=== PATIENT | female | born 2000 | race Two or more races ===

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

== ENCOUNTER → 2019-02-07 | Outpatient (CLI) | payer OTHER | END | disposition home or self-care (01) | LOC: PRENATAL 14:30 | DX: O35.0XX0 Maternal care for (suspected) central nervous system malformation in fetus, not applicable or unspecified (principal); O28.3 Abnormal ultrasonic finding on antenatal screening of mother; O99.89 Other specified diseases and conditions complicating pregnancy, childbirth and the puerperium ==

== ENCOUNTER 2019-03-14 21:45 | Outpatient (CLI) | payer OTHER ==
[2019-03-14] MEDS ORDERED: PRENATAL TABLE1 EACH PO (22:09)
== END 2019-03-15 10:37 | disposition home or self-care (01) ==
LOC: OBS/DEL 21:45
DX: O98.813 Other maternal infectious and parasitic diseases complicating pregnancy, third trimester (principal); B37.89 Other sites of candidiasis; O76 Abnormality in fetal heart rate and rhythm complicating labor and delivery

== ENCOUNTER 2019-03-16 08:41 | Inpatient (IN) | payer OTHER ==
[~2019-03-16] VITALS: Ht 172.7 cm; Wt 87.8 kg
[~2019-03-16 08:41] MED LIST: PRENATAL TABLE1 EACH PO
== END 2019-03-18 18:08 | disposition home or self-care (01) | DRG 807 ==
LOC: OBS/DEL 08:41 → OB/GYN 13:20 → OBS/DEL 13:20 → LDR 13:20 → OB/GYN 17:50
PROVIDERS: ADMIT Obstetrics & Gynecology
PROC: 10E0XZZ Delivery of Products of Conception, External Approach (ICD-10-PCS; principal; 2019-03-16)
PROC: 0HQ9XZZ Repair Perineum Skin, External Approach (ICD-10-PCS; 2019-03-16)
PROC: 10907ZC Drainage of Amniotic Fluid, Therapeutic from Products of Conception, Via Natural or Artificial Opening (ICD-10-PCS; 2019-03-16)
PROC: 3E033VJ Introduction of Other Hormone into Peripheral Vein, Percutaneous Approach (ICD-10-PCS; 2019-03-16)
PROC: 4A1HXCZ Monitoring of Products of Conception, Cardiac Rate, External Approach (ICD-10-PCS; 2019-03-16)
DX: O70.0 First degree perineal laceration during delivery (principal); Z37.0 Single live birth; Z3A.38 38 weeks gestation of pregnancy; Z22.330 Carrier of Group B streptococcus

== ENCOUNTER 2023-07-19 09:33 | Emergency (ER) | payer OTHER ==
[~2023-07-19] VITALS: Ht 170.2 cm; Wt 78.0 kg
[2023-07-19 11:21] LABS: HEMATOCRIT 33.3 % (36.0-45.00); MEAN CELL VOLUME 87.4 fL (80.00-100.00); MEAN CORPUSCULAR HGB CONC 33.2 g/dl (32.0-36.0); PLATELET COUNT 206 K/uL (150-450); RED BLOOD COUNT 3.81 M/uL (4.00-6.00); RED CELL DISTRIBUTION WIDTH 13.5 % (11.5-14.5)
[2023-07-19 11:26] LABS: URINE APPEARANCE Cloudy; URINE BILIRRUBIN Negative (NEGATIVE); URINE BLOOD Negative; URINE COLOR Yellow; URINE GLUCOSE Negative (NEGATIVE); URINE LEUKOCYTE Small; URINE NITRATE Negative; URINE PROTEIN Negative (NEGATIVE)
[2023-07-19 11:27] LABS: URINE BACTERIA 3747.1 uL (0.0-1933); URINE EPITHELIAL CELLS 102.8 uL (0.0-38.8); URINE WBC 73.9 uL (0.0-23.2)
[2023-07-19 11:54] LABS: CALCIUM 9.2 mg/dL (8.5-10.1); CREATININE SERUM 0.56 mg/dL (0.55-1.02); POTASSIUM 3.87 mEq/L (3.5-5.1)
[2023-07-19 11:55] LABS: URINE RBC 1.7 uL (0.0-20.8)
[2023-07-19] MEDS ORDERED: HYOSCYAMINE SULFATE 0.125 MG TAB.SUBL SL ONE (12:00)
== END 2023-07-19 14:26 | disposition home or self-care (01) ==
LOC: ER 09:33
PROVIDERS: Emergency Medicine
DX: Z34.90 Encounter for supervision of normal pregnancy, unspecified, unspecified trimester (principal); K29.70 Gastritis, unspecified, without bleeding; R10.9 Unspecified abdominal pain

== ENCOUNTER 2023-12-27 05:15 | Inpatient (IN) | payer OTHER ==
[~2023-12-27] VITALS: Ht 170.2 cm; Wt 98.9 kg
[2023-12-27] VITALS (8 sets, daily range): BP systolic 111–142; BP diastolic 66–82
[2023-12-27] MEDS ORDERED: RINGERS SOLUTION,LACTATED 1,000 ML IV SCH (07:45)
[2023-12-27 07:53] LABS: HEMATOCRIT 34.4 % (36.0-45.00); HEMOGLOBIN 11.4 g/dL (12.0-15.00); MEAN CORPUSCULAR HEMOGLOBIN 29.9 pg (27.00-32.0); MEAN CORPUSCULAR HGB CONC 33.2 g/dl (32.0-36.0); PLATELET COUNT 211 K/uL (150-450); RED BLOOD COUNT 3.82 M/uL (4.00-6.00); RED CELL DISTRIBUTION WIDTH 14.4 % (11.5-14.5)
[2023-12-27 07:56] LABS: PH,URINE 7.5 (5.0-8.0); URINE APPEARANCE Clear; URINE BILIRRUBIN Negative (NEGATIVE); URINE BLOOD Negative; URINE COLOR Yellow; URINE GLUCOSE Negative (NEGATIVE); URINE KETONE Negative (NEGATIVE); URINE LEUKOCYTE Moderate; URINE NITRATE Negative; URINE PROTEIN Negative (NEGATIVE)
[2023-12-27 07:59] LABS: URINE BACTERIA 3200.1 uL (0.0-1933); URINE EPITHELIAL CELLS 30.4 uL (0.0-38.8); URINE RBC 2.2 uL (0.0-20.8); URINE WBC 42.5 uL (0.0-23.2)
[2023-12-27] MEDS ORDERED: CHLORHEXIDINE GLUCONATE 120 ML BOTTLE TOP ONE (08:45)
[2023-12-27] MEDS ORDERED: ERYTHROMYCIN BASE 1 GM TUBE OP ONE (08:45)
[2023-12-27] MEDS ORDERED: OXYTOCIN 20 UNITS/1000ML RL PIGGYBAG IV ONE (08:45)
[2023-12-27] MEDS ORDERED: LIDOCAINE HCL 1% 10ML VIAL ONE (08:45)
[2023-12-27 08:51] LABS: INR < 0.93; PARTIAL THROMBOPLASTIN TIME 28.2 SECONDS (22.0-34.0); PROTHROMBIN TIME 10.2 SECONDS (9.0-11.5)
[2023-12-27] MEDS ORDERED: OXYTOCIN 20 UNITS/500ML RL PIGGYBAG IV ONE (10:42)
[2023-12-27] MEDS ORDERED: OXYTOCIN 20 UNITS/500ML RL PIGGYBAG IV SCH (11:00)
[2023-12-27] MEDS ORDERED: OXYTOCIN 1,000 ML IV SCH (17:15)
[2023-12-27] MEDS ORDERED: ACETAMINOPHEN 500 MG GEL..CAP PO PRN (17:15)
[2023-12-27] MEDS ORDERED: ERYTHROMYCIN BASE 1 GM TUBE OP SCH (17:15)
[2023-12-27] MEDS ORDERED: CHLORHEXIDINE GLUCONATE 120 ML BOTTLE TP SCH (17:15)
[2023-12-27 23:29] LABS: HEMATOCRIT 35.9 % (36.0-45.00); MEAN CELL VOLUME 89.7 fL (80.00-100.00); MEAN CORPUSCULAR HEMOGLOBIN 29.8 pg (27.00-32.0); MEAN CORPUSCULAR HGB CONC 33.3 g/dl (32.0-36.0); PLATELET COUNT 204 K/uL (150-450); RED BLOOD COUNT 4.01 M/uL (4.00-6.00); RED CELL DISTRIBUTION WIDTH 14.1 % (11.5-14.5)
[2023-12-28 01:13] VITALS: BP 123/72
[2023-12-28 08:00] VITALS: BP 111/71
[2023-12-28] MEDS ORDERED: PNV,CALCIUM 72/IRON/FOLIC ACID 1 TAB TABLET PO SCH (09:00)
[2023-12-28 10:38] VITALS: BP 111/71
[2023-12-28 16:41] VITALS: BP 114/67
[2023-12-28] MEDS ORDERED: FF) RHO(D) IMMUNE GLOBULIN (POM) IM SCH (20:00)
[2023-12-29] VITALS: BP 119/71
[2023-12-29 09:07] VITALS: BP 119/75
[2023-12-29 16:10] VITALS: BP 120/74
== END 2023-12-29 17:01 | disposition home or self-care (01) | DRG 807 ==
LOC: LDR 05:15 → OB/GYN 17:30
PROVIDERS: ADMIT Obstetrics & Gynecology; ATTEND Obstetrics & Gynecology
PROC: 10E0XZZ Delivery of Products of Conception, External Approach (ICD-10-PCS; principal; 2023-12-27)
PROC: 4A1HXCZ Monitoring of Products of Conception, Cardiac Rate, External Approach (ICD-10-PCS; 2023-12-27)
DX: O80 Encounter for full-term uncomplicated delivery (principal); Z37.0 Single live birth; Z3A.39 39 weeks gestation of pregnancy; Z20.822 Contact with and (suspected) exposure to COVID-19